=== PATIENT | male | born 1955 | race Caucasian/White ===

== ENCOUNTER 2022-05-31 09:52 | Inpatient (IN) | payer MEDICAID ==
[~2022-05-31] VITALS: Ht 160 cm; Wt 46.3 kg
[2022-05-31] VITALS (23 sets, daily range): BP systolic 96–114; BP diastolic 57–73
[2022-05-31] MEDS ORDERED: LEVETIRACETAM 1000MG PREMIX 100 ML IV ONE (12:00)
[2022-05-31] MEDS ORDERED: DEXAMETHASONE 10 MG/ML VIAL IV ONE (12:00)
[2022-05-31 12:25] LABS: BASOPHILS % 0.8 % (0.0-2.0); EOSINOPHILS % 0.5 % (0.0-5.0); HEMATOCRIT. 30.2 % (42.0-52.0); HEMOGLOBIN. 10.6 g/dL (14.0-18.0); LYMPHOCYTES % 10.3 % (20.0-50.0); MEAN CORPUSCULAR HEMOGLOBIN 35.9 pg (28.0-32.0); MEAN CORPUSCULAR VOLUME 102.4 fL (80.0-94.0); NEUTROPHILS % 80.4 % (40.0-76.0); RED BLOOD CELL COUNT 2.95 mill/uL (4.7-6.1)
[2022-05-31 12:27] LABS: CHLORIDE 109 mEq/L (98-107)
[2022-05-31] MEDS ORDERED: AZITHROMYCIN 500MG/250ML 250 ML IV ONE (12:30)
[2022-05-31] MEDS ORDERED: CEFTRIAXONE 1 G PREMIX 50 ML IV ONE (12:30)
[2022-05-31] MEDS ORDERED: NICARDIPINE 100 MG in SODIUM CHLORIDE 0.9% 60 ML IV PRN ×2 (12:30→13:30)
[2022-05-31 12:43] LABS: ETHANOL BLOOD < 10 mg/dL
[2022-05-31] MEDS ORDERED: GENTAMICIN SULF 40MG/ML 2ML VIAL ONE (13:45)
[2022-05-31] MEDS ORDERED: THROMBIN (BOVINE) 5000 UNITS/VIAL TOP ONE (13:45)
[2022-05-31] MEDS ORDERED: LIDOCAINE HCL/EPINEPHRINE 1%-EPI 1:100,000 20 ML VIAL ONE (15:11)
[2022-05-31] MEDS ORDERED: SUCCINYLCHOLINE CHLORIDE 200MG/10ML IV ONE (15:20)
[2022-05-31] MEDS ORDERED: MIDAZOLAM HCL 2 MG/2 ML VIAL ONE (15:20)
[2022-05-31] MEDS ORDERED: FENTANYL CITRATE/PF 50MCG/ML 2ML VIAL ONE (15:20)
[2022-05-31] MEDS ORDERED: ETOMIDATE 2MG/ML 10ML VIAL IV ONE (15:20)
[2022-05-31] MEDS ORDERED: MORPHINE SULFATE 2 MG/ML CPJ (NOT FOR IM USE) IV PRN (15:30)
[2022-05-31] MEDS ORDERED: CEFAZOLIN 1000MG PREMIX 50 ML IV SCH (15:30)
[2022-05-31] MEDS ORDERED: ROCURONIUM BROMIDE 10MG/ML VIAL 5ML IV ONE (15:41)
[2022-05-31] MEDS ORDERED: BACITRACIN 15GM TUBE TOP ONE (15:52)
[2022-05-31] MEDS ORDERED: EPHEDRINE SULFATE 50MG/ML VIAL ONE (16:01)
[2022-05-31] MEDS ORDERED: LEVETIRACETAM 500 MG in SODIUM CHLORIDE 0.9% 100 ML IV SCH (16:45)
[2022-05-31] MEDS ORDERED: ONDANSETRON HCL 4MG/2ML INJ IV PRN (16:45)
[2022-05-31] MEDS: DEXAMETHASONE 4MG/ML 1ML VIAL IV SCH (17:26)
[2022-05-31] MEDS: PANTOPRAZOLE SODIUM 40 MG/VIAL IV SCH (17:27)
[2022-05-31] MEDS: DEXT 5%/LACTATED RINGERS 1,000 ML IV SCH (17:27)
[2022-05-31] MEDS ORDERED: FURO-151 PO (18:21)
[2022-05-31] MEDS ORDERED: SPIR100T5 MT (18:21)
[2022-05-31 19:44] LABS: CLARITY URINE CLEAR (CLEAR); COLOR URINE DARK YELLOW (YELLOW); KETONES URINE NEGATIVE (NEGATIVE); LEUKOCYTE ESTERASE URINE NEGATIVE (NEGATIVE); NITRITE URINE NEGATIVE (NEGATIVE); OCCULT BLOOD URINE NEGATIVE (NEGATIVE); PH URINE 7.5 (4.5-8.0); PROTEIN URINE NEGATIVE (NEGATIVE); SPECIFIC GRAVITY URINE 1.018 (1.005-1.030)
[2022-05-31 20:00] LABS: *AMPHETAMINES SCREEN URINE NEGATIVE (NEGATIVE); *BARBITURATES SCREEN URINE NEGATIVE (NEGATIVE); *BENZODIAZEPINES SCREEN URINE NEGATIVE (NEGATIVE); *COCAINE SCREEN URINE NEGATIVE (NEGATIVE); CANNABINOID URINE SCREEN NEGATIVE (NEGATIVE); METHADONE URINE SCREEN NEGATIVE (NEGATIVE); OPIATES URINE SCREEN NEGATIVE (NEGATIVE); PHENCYCLIDINE URINE SCREEN NEGATIVE (NEGATIVE)
[2022-05-31] MEDS ORDERED: IPRATROPIUM/ALBUTEROL 0.5-3(2.5)MG/3ML NEB HHN PRN (20:15)
[2022-05-31] MEDS ORDERED: PROPOFOL 10MG/ML 100ML 100 ML IV PRN (20:15)
[2022-05-31 20:25] LABS: INR 1.6; PROTHROMBIN TIME 16.8 sec (9.6-11.0)
[2022-05-31] MEDS ORDERED: LEVETIRACETAM 500MG PREMIX 100 ML IV SCH (21:00)
[2022-05-31] MEDS: LEVETIRACETAM 500MG PREMIX 100 ML IV SCH (21:34)
[2022-05-31 22:53] LABS: BG BASE EXCESS -4.7 mmol/L (-2.0-2.0); BG CARBOXYHEMOGLOBIN 0.2 % (0.5-1.5); BG DEOXYHEMOGLOBIN 1.2 % (0.0-5.0); BG FRACTION INSPIRED OXYGEN 50; BG HCO3 ACT 18.9 mmol/L (22.0-26.0); BG METHEMOGLOBIN 0.3 % (0.0-1.5); BG OXYGEN SATURATION 98.8 % (92.0-98.5); BG OXYHEMOGLOBIN 98.3 % (94.0-97.0); BG PCO2 30.3 mmHg (35.0-45.0); BG PH 7.414 (7.350-7.450); BG PO2 143.7 mmHg (75.0-100.0); BG SAMPLE SITE LEFT BRACHIAL; BG TOTAL HEMOGLOBIN 11.1 g/dL (12.0-18.0); BG VENT MODE VENT - AC
[2022-06-01] VITALS (92 sets, daily range): BP systolic 87–156; BP diastolic 50–81
[2022-06-01] MEDS: IPRATROPIUM/ALBUTEROL 0.5-3(2.5)MG/3ML NEB HHN SCH ×4 (00:32→20:21)
[2022-06-01 00:41] LABS: INR 1.6; PROTHROMBIN TIME 16.9 sec (9.6-11.0)
[2022-06-01] MEDS: DEXAMETHASONE 4MG/ML 1ML VIAL IV SCH ×4 (02:12→18:25)
[2022-06-01 05:28] LABS: CHLORIDE 109 mEq/L (98-107)
[2022-06-01 05:35] LABS: HEMATOCRIT. 29.5 % (42.0-52.0); HEMOGLOBIN. 10.3 g/dL (14.0-18.0); MEAN CORPUSCULAR HEMOGLOBIN 36.1 pg (28.0-32.0); MEAN CORPUSCULAR VOLUME 103.5 fL (80.0-94.0); RED BLOOD CELL COUNT 2.85 mill/uL (4.7-6.1); RED CELL DISTRIBUTION WIDTH 14.9 % (11.6-14.6)
[2022-06-01] MEDS ORDERED: NOREPINEPHRINE 32 MG in DEXT 5% WATER 218 ML IV PRN (05:45)
[2022-06-01] MEDS: DEXT 5%/LACTATED RINGERS 1,000 ML IV SCH (08:21)
[2022-06-01] MEDS: LEVETIRACETAM 500MG PREMIX 100 ML IV SCH ×2 (08:22→21:40)
[2022-06-01] MEDS: PANTOPRAZOLE SODIUM 40 MG/VIAL IV SCH (08:22)
[2022-06-01 08:28] LABS: BG BASE EXCESS -3.3 mmol/L (-2.0-2.0); BG CARBOXYHEMOGLOBIN 0.4 % (0.5-1.5); BG FRACTION INSPIRED OXYGEN 50; BG HCO3 ACT 20.4 mmol/L (22.0-26.0); BG METHEMOGLOBIN 0.3 % (0.0-1.5); BG OXYHEMOGLOBIN 98.3 % (94.0-97.0); BG PCO2 32.4 mmHg (35.0-45.0); BG PH 7.418 (7.350-7.450); BG PO2 128.8 mmHg (75.0-100.0); BG SAMPLE SITE RIGHT RADIAL; BG TOTAL HEMOGLOBIN 10.8 g/dL (12.0-18.0); BG VENT MODE VENT - AC
[2022-06-01 11:00] LABS: PLATELET ESTIMATE NORMAL
[2022-06-01 11:14] LABS: BG BASE EXCESS -3.6 mmol/L (-2.0-2.0); BG CARBOXYHEMOGLOBIN 0.2 % (0.5-1.5); BG DEOXYHEMOGLOBIN 1.6 % (0.0-5.0); BG FRACTION INSPIRED OXYGEN 40; BG HCO3 ACT 19.7 mmol/L (22.0-26.0); BG METHEMOGLOBIN 0.6 % (0.0-1.5); BG OXYGEN SATURATION 98.4 % (92.0-98.5); BG OXYHEMOGLOBIN 97.6 % (94.0-97.0); BG PCO2 29.7 mmHg (35.0-45.0); BG PH 7.439 (7.350-7.450); BG PO2 112.9 mmHg (75.0-100.0); BG SAMPLE SITE RIGHT RADIAL; BG TOTAL HEMOGLOBIN 11.1 g/dL (12.0-18.0); BG VENT MODE VENT - CPAP
[2022-06-01] MEDS: CEFTRIAXONE 1,000 MG in DEXTROSE 5% WATER 50 ML IV SCH (12:21)
[2022-06-01] MEDS ORDERED: CEFTRIAXONE 1,000 MG in DEXTROSE 5% WATER 50 ML IV SCH (13:00)
[2022-06-01] MEDS: LACTULOSE 20G/30ML UDC PO SCH ×2 (14:09→21:41)
[2022-06-02] VITALS (42 sets, daily range): BP systolic 98–150; BP diastolic 55–84
[2022-06-02] MEDS: DEXT 5%/LACTATED RINGERS 1,000 ML IV SCH ×2 (00:50→19:30)
[2022-06-02] MEDS: IPRATROPIUM/ALBUTEROL 0.5-3(2.5)MG/3ML NEB HHN SCH ×4 (01:16→20:17)
[2022-06-02 05:29] LABS: HEMATOCRIT. 27.9 % (42.0-52.0); HEMOGLOBIN. 9.9 g/dL (14.0-18.0); MEAN CORPUSCULAR HEMOGLOBIN 36.7 pg (28.0-32.0); MEAN CORPUSCULAR VOLUME 103.7 fL (80.0-94.0); RED BLOOD CELL COUNT 2.69 mill/uL (4.7-6.1); RED CELL DISTRIBUTION WIDTH 15.3 % (11.6-14.6)
[2022-06-02] MEDS: LACTULOSE 20G/30ML UDC PO SCH ×3 (05:45→21:31)
[2022-06-02 05:56] LABS: CHLORIDE 111 mEq/L (98-107)
[2022-06-02] MEDS: PANTOPRAZOLE SODIUM 40 MG/VIAL IV SCH (08:32)
[2022-06-02] MEDS: LEVETIRACETAM 500MG PREMIX 100 ML IV SCH ×2 (08:32→21:31)
[2022-06-02] MEDS: METRONIDAZOLE 500 MG PREMIX 100 ML IV SCH ×3 (12:39→23:33)
[2022-06-02 13:26] LABS: PLATELET 134 x1000/uL (130-400)
[2022-06-02 13:30] LABS: PLATELET ESTIMATE NORMAL
[2022-06-02] MEDS: CEFTRIAXONE 1,000 MG in DEXTROSE 5% WATER 50 ML IV SCH (13:57)
[2022-06-03] VITALS (44 sets, daily range): BP systolic 105–132; BP diastolic 54–75
[2022-06-03] MEDS: IPRATROPIUM/ALBUTEROL 0.5-3(2.5)MG/3ML NEB HHN SCH ×4 (01:35→19:22)
[2022-06-03] MEDS: METRONIDAZOLE 500 MG PREMIX 100 ML IV SCH ×3 (05:41→21:17)
[2022-06-03] MEDS: LACTULOSE 20G/30ML UDC PO SCH ×3 (05:42→21:17)
[2022-06-03 06:00] LABS: CHLORIDE 110 mEq/L (98-107)
[2022-06-03 07:22] LABS: HEMATOCRIT. 26.7 % (42.0-52.0); HEMOGLOBIN. 9.4 g/dL (14.0-18.0); MEAN CORPUSCULAR HEMOGLOBIN 37.2 pg (28.0-32.0); MEAN CORPUSCULAR VOLUME 105.7 fL (80.0-94.0); RED BLOOD CELL COUNT 2.53 mill/uL (4.7-6.1); RED CELL DISTRIBUTION WIDTH 15.3 % (11.6-14.6)
[2022-06-03] MEDS: LEVETIRACETAM 500MG PREMIX 100 ML IV SCH ×2 (08:00→21:17)
[2022-06-03] MEDS: PANTOPRAZOLE SODIUM 40 MG/VIAL IV SCH (08:00)
[2022-06-03] MEDS ORDERED: NALOXONE HCL 0.4MG/ML VIAL IV PRN (08:30)
[2022-06-03] MEDS: DEXT 5%/LACTATED RINGERS 1,000 ML IV SCH (09:21)
[2022-06-03 11:52] LABS: PLATELET 111 x1000/uL (130-400)
[2022-06-03 11:56] LABS: PLATELET ESTIMATE SLIGHTLY DECREASED
[2022-06-03] MEDS: CEFTRIAXONE 1,000 MG in DEXTROSE 5% WATER 50 ML IV SCH (13:45)
[2022-06-04] VITALS (35 sets, daily range): BP systolic 103–128; BP diastolic 61–88
[2022-06-04] MEDS: DEXT 5%/LACTATED RINGERS 1,000 ML IV SCH ×2 (02:43→21:25)
[2022-06-04 05:20] LABS: EOSINOPHILS % 0.8 % (0.0-5.0); HEMATOCRIT. 26.5 % (42.0-52.0); HEMOGLOBIN. 9.5 g/dL (14.0-18.0); LYMPHOCYTES % 23.2 % (20.0-50.0); MEAN CORPUSCULAR HEMOGLOBIN 36.4 pg (28.0-32.0); MEAN CORPUSCULAR VOLUME 101.5 fL (80.0-94.0); MONOCYTES % 12.2 % (2.0-8.0); NEUTROPHILS % 62.8 % (40.0-76.0); RED BLOOD CELL COUNT 2.61 mill/uL (4.7-6.1); RED CELL DISTRIBUTION WIDTH 15.2 % (11.6-14.6)
[2022-06-04 05:40] LABS: CHLORIDE 108 mEq/L (98-107)
[2022-06-04] MEDS: LACTULOSE 20G/30ML UDC PO SCH ×4 (06:07→21:36)
[2022-06-04] MEDS: METRONIDAZOLE 500 MG PREMIX 100 ML IV SCH ×3 (06:07→21:24)
[2022-06-04] MEDS: PANTOPRAZOLE SODIUM 40 MG/VIAL IV SCH (08:00)
[2022-06-04] MEDS: LEVETIRACETAM 500MG PREMIX 100 ML IV SCH ×2 (08:01→21:24)
[2022-06-04] MEDS: IPRATROPIUM/ALBUTEROL 0.5-3(2.5)MG/3ML NEB HHN SCH ×2 (08:31→14:50)
[2022-06-04 09:22] LABS: MEAN PLATELET VOLUME 7.1 fl (7.4-10.4); PLATELET 84 x1000/uL (130-400)
[2022-06-04] MEDS: CEFTRIAXONE 1,000 MG in DEXTROSE 5% WATER 50 ML IV SCH (12:51)
[2022-06-04] MEDS ORDERED: LACT10SO7 MT (15:17)
[2022-06-04] MEDS ORDERED: ALBUTEROL (0.083%) 2.5MG/3ML NEB HHN PRN (17:00)
[2022-06-04] MEDS ORDERED: IPRATROPIUM BROMIDE (0.02%) 0.5MG/2.5ML NEB HHN PRN (17:00)
[2022-06-04] MEDS: IPRATROPIUM BROMIDE (0.02%) 0.5MG/2.5ML NEB HHN SCH (20:57)
[2022-06-04] MEDS: ALBUTEROL (0.083%) 2.5MG/3ML NEB HHN SCH (20:58)
[2022-06-05] VITALS: BP 125/75
[2022-06-05] MEDS: IPRATROPIUM BROMIDE (0.02%) 0.5MG/2.5ML NEB HHN SCH ×4 (02:43→21:19)
[2022-06-05] MEDS: ALBUTEROL (0.083%) 2.5MG/3ML NEB HHN SCH ×4 (02:44→21:19)
[2022-06-05 04:00] VITALS: BP 135/80
[2022-06-05] MEDS: LACTULOSE 20G/30ML UDC PO SCH ×3 (07:10→21:58)
[2022-06-05] MEDS: METRONIDAZOLE 500 MG PREMIX 100 ML IV SCH ×2 (07:11→13:42)
[2022-06-05 08:13] VITALS: BP 127/71
[2022-06-05] MEDS: PANTOPRAZOLE SODIUM 40 MG/VIAL IV SCH (08:33)
[2022-06-05] MEDS: LEVETIRACETAM 500MG PREMIX 100 ML IV SCH (08:33)
[2022-06-05 12:00] VITALS: BP 125/70
[2022-06-05] MEDS: DEXT 5%/LACTATED RINGERS 1,000 ML IV SCH (12:12)
[2022-06-05] MEDS: CEFTRIAXONE 1,000 MG in DEXTROSE 5% WATER 50 ML IV SCH (14:35)
[2022-06-05 16:00] VITALS: BP 133/78
[2022-06-05 20:00] VITALS: BP 113/56
[2022-06-05] MEDS: LEVETIRACETAM 500MG TABLET PO SCH (21:50)
[2022-06-05] MEDS: METRONIDAZOLE 500MG TABLET PO SCH (21:57)
[2022-06-05] MEDS ORDERED: ZOLPIDEM TARTRATE 5MG TABLET PO PRN (23:00)
[2022-06-06] VITALS: BP 142/80
[2022-06-06] MEDS: ALBUTEROL (0.083%) 2.5MG/3ML NEB HHN SCH ×2 (02:21→10:20)
[2022-06-06] MEDS: IPRATROPIUM BROMIDE (0.02%) 0.5MG/2.5ML NEB HHN SCH ×2 (02:21→10:20)
[2022-06-06 04:00] VITALS: BP 124/68
[2022-06-06] MEDS: DEXT 5%/LACTATED RINGERS 1,000 ML IV SCH (04:50)
[2022-06-06] MEDS: LACTULOSE 20G/30ML UDC PO SCH (06:00)
[2022-06-06] MEDS: METRONIDAZOLE 500MG TABLET PO SCH (06:00)
[2022-06-06 08:00] VITALS: BP 159/83
[2022-06-06] MEDS: LEVETIRACETAM 500MG TABLET PO SCH (09:02)
[2022-06-06] MEDS: PANTOPRAZOLE SODIUM 40 MG/VIAL IV SCH (09:03)
== END 2022-06-06 12:37 | disposition home health service (06) | DRG 21 ==
LOC: ER 09:52 → ORIP 12:21 → EDBEDREQ 12:23 → EDBEDREQTM 12:24 → EDBEDREQSVC 12:24 → MICUSO 17:01 → 6EST 06-04 16:50
PROVIDERS: ADMIT Internal Medicine; ATTEND Internal Medicine
PROC: 00C40ZZ Extirpation of Matter from Intracranial Subdural Space, Open Approach (ICD-10-PCS; principal; 2022-05-31)
PROC: 4A103BD Monitoring of Intracranial Pressure, Percutaneous Approach (ICD-10-PCS; 2022-05-31)
PROC: 00H032Z Insertion of Monitoring Device into Brain, Percutaneous Approach (ICD-10-PCS; 2022-05-31)
PROC: 0BH17EZ Insertion of Endotracheal Airway into Trachea, Via Natural or Artificial Opening (ICD-10-PCS; 2022-05-31)
PROC: 5A1935Z Respiratory Ventilation, Less than 24 Consecutive Hours (ICD-10-PCS; 2022-05-31)
PROC: 5A0935A Assistance with Respiratory Ventilation, Less than 24 Consecutive Hours, High Flow/Velocity Cannula (ICD-10-PCS; 2022-05-31)
DX: I62.01 Nontraumatic acute subdural hemorrhage (principal); J96.00 Acute respiratory failure, unspecified whether with hypoxia or hypercapnia; J69.0 Pneumonitis due to inhalation of food and vomit; G93.40 Encephalopathy, unspecified; K76.82 Hepatic encephalopathy; I10 Essential (primary) hypertension; I48.0 Paroxysmal atrial fibrillation; I62.03 Nontraumatic chronic subdural hemorrhage; D64.9 Anemia, unspecified; F10.20 Alcohol dependence, uncomplicated; K70.30 Alcoholic cirrhosis of liver without ascites
CPT/HCPCS: 31500; 36415; 36600; 71045; 80053; 80061; 80305; 80307; 80320; 80329; 81003; 82140; 82375; 82805; 83036; 83605; 83880; 84295; 84443; 84478; 84484; 85025; 85049; 86850; 86900; 92610; 93005; 93306; 94002; 94003; 94640; 97116; 97162; 97166; 97530; 97535; 99291; C9113; J0330; J0456; J0696; J1100; J1580; J1953; J2250; J2270; J2405; J2704; J3010; J3490; J7050; J7060; J7121; C1713; G0480